=== PATIENT | female | born 1950 | race Caucasian/White ===

== ENCOUNTER → 2017-06-22 | Outpatient (CLI) | payer MEDICARE, OTHER ==
--- NOTE | 2017-06-25 10:28 | MM ---
Reason for exam: screening (asymptomatic). Last mammogram was performed 1 year and 2 months ago. History: Patient is postmenopausal. Physical Findings: A clinical breast exam by your physician is recommended on an annual basis and results should be correlated with mammographic findings. MG 3D Screening Mammo W/Cad Bilateral CC and MLO view(s) were taken. Prior study comparison: April 20, 2016, bilateral MG diagnostic mammo w CAD AMADEO. January 22, 2015, bilateral MG diagnostic mammo w CAD AMADEO. There are scattered fibroglandular densities. There are stable bilateral diffuse calcifications. No suspicious abnormality. No significant changes when compared with prior studies. ASSESSMENT: Benign, BI-RAD 2 RECOMMENDATION: Routine screening mammogram of both breasts in 1 year.
== END | disposition home or self-care (01) ==
LOC: RADMAMWWP 09:46
PROVIDERS: ATTEND Family Medicine
DX: Z12.31 Encounter for screening mammogram for malignant neoplasm of breast (principal)
CPT/HCPCS: 77063; G0202

== ENCOUNTER → 2017-11-06 | Outpatient (CLI) | payer MEDICARE, OTHER ==
--- NOTE | 2017-11-07 12:51 | ECHOF ---
Referral Reason:R60.9 Edema, unspecified, E11.9 Type 2 diabetes MEASUREMENTS -------- HEIGHT: 172.7 cm WEIGHT: 154.2 kg BP: IVSd: 1.3 cm (0.6 - 1.1) LVIDd: 4.1 cm (3.9 - 5.3) LVPWd: 1.3 cm (0.6 - 1.1) IVSs: 1.4 cm LVIDs: 3.4 cm LVPWs: 1.3 cm MV E Jae: 0.45 m/s MV DecT: 174 ms MV A Jae: 0.74 m/s MV E/A Ratio: 0.61 AV maxP.47 mmHg AV meanP.11 mmHg FINDINGS -------- Sinus rhythm. Morbid Obesity This was a techncally difficult study with suboptimal views, , Definity utilized for enhancement of images. There is mild concentric left ventricular hypertrophy. Overall left ventricular systolic function i s low-normal with, an EF between 50 - 55 %. The right ventricle is normal in size. The left atrial size is normal. The right atrial size is normal. The aortic valve was not well visualized. There is mild aortic stenosis present. Mild mitral annular calcification present. The tricuspid valve was not well visualized. No regurgitation noted Right ventricular systolic pr essure is normal at < 35 mmHg. There is no evidence of pulmonary hypertension. The pulmonic valve was not well visualized. CONCLUSIONS -------- 1. Morbid Obesity 2. This was a techncally difficult study with suboptimal views, , Definity utilized for enhancement o f images. 3. There is mild concentric left ventricular hypertrophy. 4. Overall left ventricular systolic function is low-normal with, an EF between 50 - 55 %. 5. The right ventricle is normal in size. 6. The left atrial size is normal. 7. The right atrial size is normal. 8. The aortic valve was not well visualized. 9. There is mild aortic stenosis present. 10. Mild mitral annular calcification present. 11. The tricuspid valve was not well visualized. 12. No regurgitation noted 13. Right ventricular systolic pressure is normal at < 35 mmHg. 14. The pulmonic valve was not well visualized. CARPENTER [employer]OTOTYPE: Claire Goss RDCS
== END | disposition home or self-care (01) ==
LOC: RADECHMAIN 11:18
PROVIDERS: ATTEND Family Medicine
DX: I35.0 Nonrheumatic aortic (valve) stenosis (principal); I51.7 Cardiomegaly; E11.9 Type 2 diabetes mellitus without complications; E66.01 Morbid (severe) obesity due to excess calories; I34.8 Other nonrheumatic mitral valve disorders
CPT/HCPCS: C8929; Q9950; 93306

== ENCOUNTER → 2018-06-25 | Outpatient (CLI) | payer MEDICARE, OTHER ==
--- NOTE | 2018-06-25 12:28 | US ---
EXAMINATION TYPE: US venous doppler duplex LE LT DATE OF EXAM: 06/25/2018 11:33 AM COMPARISON: NONE CLINICAL HISTORY: R22.42 Swelling Of Limb, M79.662 Pain. SIDE PERFORMED: left TECHNIQUE: The lower extremity deep venous system is examined utilizing real time linear array sonog aminah with graded compression, doppler sonography and color-flow sonography. VESSELS IMAGED: External Iliac Vein (EIV) Common Femoral Vein Deep Femoral Vein Greater Saphenous Vein * Femoral Vein Popliteal Vein Small Saphenous Vein * Grayscale, color doppler, spectral doppler imaging performed of the deep veins of the left lower extr emity. There is normal flow, compressibility, vascular waveforms. Left Leg: Negative for DVT Elongated popliteal cyst 4.3 x 0.5 x cm popliteal (bakers cyst) IMPRESSION: 1. No sonographic evidence of deep venous arthrosis within the left lower extremity. 2. Elongated popliteal cyst measuring up to 4.3 cm in length but only 0.5 cm in thickness.
== END | disposition home or self-care (01) ==
LOC: RADUSWWP 10:48
PROVIDERS: ATTEND Family Medicine
DX: M71.22 Synovial cyst of popliteal space [Baker], left knee (principal); R22.42 Localized swelling, mass and lump, left lower limb; Z88.2 Allergy status to sulfonamides

== ENCOUNTER → 2018-12-10 | Outpatient (CLI) | payer MEDICARE, OTHER ==
--- NOTE | 2018-12-10 10:00 | US ---
EXAMINATION TYPE: US thyroid st tissue head/neck DATE OF EXAM: 12/10/2018 COMPARISON: NONE CLINICAL HISTORY: E04.9 GOITER. Neck swelling, difficulty swallowing GLAND SIZE: Right Lobe: 4.3 x 2.0 x 1.9 cm Overall Parenchyma: heterogenous Left Lobe: 4.2 x 1.7 x 1.7 cm Overall Parenchyma: heterogeneous Isthmus Thickness: 0.5 cm NODULES RIGHT: # of nodules measured on right: 3 1. 1.0 X 0.7 x 1.1 cm hypoechoic mixed nodule at the mid pole with well-defined margins. This nodul e is wider than tall and shows intranodular vascularity. Prior size: no previous 2. 0.9 X 0.6 x 0.9 cm hypoechoic cystic nodule at the lower pole with well-defined margins. This nod ule is wider than tall and shows no intranodular vascularity. Prior size: no previous 3. 0.6 X 0.3 x 0.6 cm hypoechoic mixed nodule at the lower pole with well-defined margins. This nodu le is wider than tall and shows no intranodular vascularity. Prior size: no previous LEFT: # of nodules measured on left: 2 1. 1.6 X 1.4 x 1.2 cm hypoechoic mixed nodule at the mid pole with well-defined margins. This nodul e is taller than wide and shows intranodular vascularity. Prior size: no previous 2. 1.0 X 0.5 x 1.0 cm hypoechoic solid nodule at the upper pole with well-defined margins. This nodu le is wider than tall and shows intranodular vascularity. Prior size: no previous ISTHMUS: # of nodules measured in the isthmus: 0 Bilateral neck scanned, no evidence of lymphadenopathy. IMPRESSION: Multinodular thyroid with a dominant nodule on the left measuring 1.6 cm. No prior exams are availabl e for comparison. Heterogeneous thyroid tissue is suggestive of thyroiditis.
== END | disposition home or self-care (01) ==
LOC: RADUSWWP 08:40
PROVIDERS: ATTEND Family Medicine
DX: E04.2 Nontoxic multinodular goiter (principal); Z88.2 Allergy status to sulfonamides
CPT/HCPCS: 76536

== ENCOUNTER 2019-01-02 09:06 | Day surgery (SDC) | payer MEDICARE, OTHER ==
[2019-01-02 09:54] VITALS: RESP 16; TEMP 97.8
[2019-01-02 11:16] VITALS: BP 166/69; PULSE 84
--- NOTE | 2019-01-02 11:55 | US ---
EXAMINATION TYPE: US FNA thyroid first lesion, US FNA thyroid each add lesion, US FNA thyroid each ad d lesion DATE OF EXAM: 01/02/2019 COMPARISON: NONE HISTORY: Thyroid nodules. Maximal barrier technique was utilized. After informed consent, skin overlying the right lobe thyroi d nodule was localized with ultrasound and the overlying skin prepped and draped. Ultrasound was util ized using sterile technique. Lidocaine was used for local anesthesia. Four passes with a 25-gauge n eedle were made into the nodule and aspirated specimen was submitted to cytology. Using similar techn ique attention was directed to the upper pole left lobe thyroid nodule and similarly 4 passes were ma de with a 25-gauge needle and specimen submitted to cytology. Attention then directed to the lower po le nodule on the left at 4 passes with a 25-gauge needle were made into the nodule and aspirated spec imen submitted to cytology. Following the procedure hemostasis achieved. No immediate complication. The patient discharged in stable condition. IMPRESSION: STATUS POST ULTRASOUND GUIDED FINE NEEDLE ASPIRATION OF 3 DISCRETE THYROID NODULES, PATHO LOGY IS PENDING. THIS PROCEDURE WAS PERFORMED BY THE UNDERSIGNED.
== END 2019-01-02 11:30 | disposition home or self-care (01) ==
LOC: RADPROMAIN 09:06
PROVIDERS: ATTEND Family Medicine
DX: E04.1 Nontoxic single thyroid nodule (principal); Z88.2 Allergy status to sulfonamides
CPT/HCPCS: 10005; 10006; 88173; 88305

== ENCOUNTER 2019-05-12 20:31 | Emergency (ER) | payer MEDICARE ==
--- NOTE | 2019-05-12 21:05 | ED ---
Lower Extremity Injury HPI - General Chief Complaint: Extremity Injury, Lower Stated Complaint: R Leg Pain Time Seen by Provider: 05/12/19 21:05 Source: patient, family Mode of arrival: ambulatory Limitations: no limitations - History of Present Illness Initial Comments: Ama a 69-year-old female who presents the emergency department today for evaluation of right posterior knee pain. Patient reports she's previously experienced some minor pain and swelling of that knee and was diagnosed with a Rdz cyst approximately 2 years ago. She states that over the past 2 days she's had progressively worsening aching pain and swelling in her posterior knee which is worse than anything she ever experienced with a Rdz's cyst. Patient became concerned she may have a blood clot. Patient denies any falls or injury. She denies any anterior medial lateral knee pain. She describes it as soft tissue aching in the posterior knee. - Related Data Home Medications Medication Instructions Recorded Confirmed Albuterol Inhaler [Ventolin 1 - 2 puff INHALATION RT-QID PRN 08/14/14 05/12/19 Inhaler] Allopurinol [Zyloprim] 100 mg PO HS 07/04/17 05/12/19 Calcium/Magnesium/Zinc 1 tab PO HS 07/04/17 05/12/19 [Jbytlaw-Seokjaedm-Lyxc Tablet] Montelukast [Singulair] 10 mg PO HS 07/04/17 05/12/19 Multivitamins, Thera [Multivitamin 1 tab PO HS 07/04/17 05/12/19 (formulary)] metFORMIN HCL [Glucophage] 500 mg PO HS 07/04/17 05/12/19 Dulaglutide [Trulicity] 0.75 mg SQ SA 12/17/18 05/12/19 Fluticasone/Vilanterol [Breo 1 puff INHALATION RT-DAILY 12/17/18 05/12/19 Ellipta 200-25 Mcg INH] Atorvastatin Calcium [Lipitor] 20 mg PO HS 05/12/19 05/12/19 Cholecalciferol [Vitamin D3 (25 5,000 unit PO HS 05/12/19 05/12/19 Mcg = 1000 Iu)] Gabapentin [Neurontin] 300 mg PO TID 05/12/19 05/12/19 Lisinopril [Zestril] 5 mg PO HS 05/12/19 05/12/19 Allergies Allergy/AdvReac Type Severity Reaction Status Date / Time latex Allergy difficulty Verified 05/12/19 20:55 breathing,rash,hives Sulfa (Sulfonamide Allergy Anaphylaxis Verified 05/12/19 20:55 Antibiotics) adhesive tape AdvReac Rash/Hives Verified 05/12/19 20:55 Review of Systems ROS Statement: Those systems with pertinent positive or pertinent negative responses have been documented in the HPI. ROS Other: All systems not noted in ROS Statement are negative. Past Medical History Past Medical History: Asthma, Diabetes Mellitus, Hyperlipidemia, Hypertension Additional Past Medical History / Comment(s): thyroid nodules,enlarged goiter,gout, chronic back pain,steroid injection Oct History of Any Multi-Drug Resistant Organisms: None Reported Past Surgical History: Appendectomy, Section, Hysterectomy Additional Past Surgical History / Comment(s): neck surgery Past Anesthesia/Blood Transfusion Reactions: No Reported Reaction Additional Past Anesthesia/Blood Transfusion Reaction / Comment(s): stated "had a severe drop in heartrate during anesthesia for a colonoscopy",stated had other procedures after that colonoscopy without problems Past Psychological History: No Psychological Hx Reported Smoking Status: Former smoker Past Alcohol Use History: Rare Past Drug Use History: None Reported - Past Family History Mother Family Medical History: Cancer General Exam - General Exam Comments Initial Comments: Physical Exam GENERAL: Patient is well-developed and well-nourished. Patient is nontoxic and well-hydrated and is in no distress. HENT: Normocephalic, Atraumatic. EYES: PERRL, EOMI PULMONARY: Unlabored respirations CARDIOVASCULAR: RRR Warm and well perfused extremities ABDOMEN: Morbidly obese Nondistended SKIN: Skin is clear with no lesions or rashes and otherwise unremarkable. No skin discoloration or signs of cellulitis on the lower extremity : Deferred NEUROLOGIC: Patient is alert and oriented x3. Moving all extremities spontaneously MUSCULOSKELETAL: Normal extremities with adequate strength and full range of motion. No lower extremity swelling or edema. No calf tenderness. Palpable swelling in the popliteal fossa PSYCHIATRIC: Normal psychiatric evaluation. Limitations: no limitations Course Vital Signs 05/12/19 05/12/19 20:32 23:41 Temperature 97.9 F 98 F Pulse Rate 100 88 Respiratory 20 18 Rate Blood Pressure 143/63 122/71 O2 Sat by Pulse 96 Oximetry Medical Decision Making - Medical Decision Making The patient was seen and evaluated history is obtained from the patient History and physical exam are relatively unremarkable aside from morbid obesity. Patient has a painful popliteal fossa but no skin abnormalities no palpable cyst X-ray and ultrasound were ordered which revealed no acute pathology. Results were discussed with the patient she was treated with IM Toradol advised to continue supportive care and follow-up with orthopedics for outpatient managem ent. Disposition Clinical Impression: Right knee pain Disposition: HOME SELF-CARE Condition: Stable Instructions (If sedation given, give patient instructions): Knee Pain (ED) Is patient prescribed a controlled substance at d/c from ED?: No Referrals: David Ledesma MD [Primary Care Provider] - 1-2 days
--- NOTE | 2019-05-12 22:04 | XR ---
EXAMINATION TYPE: XR knee limited RT DATE OF EXAM: 05/12/2019 COMPARISON: NONE HISTORY: Knee pain TECHNIQUE: 2 views FINDINGS: There is some spurring on the patella. I see no fracture nor dislocation. There is no sign of knee joint effusion. IMPRESSION: Mild spurring. No fracture seen.
--- NOTE | 2019-05-12 23:00 | US ---
EXAM: US Duplex Right Lower Extremity Veins CLINICAL HISTORY: ITS.REASON US Reason: Posterior knee pain concern for flores cyst vs dvt TECHNIQUE: Real-time duplex ultrasound scan of the right lower extremity veins integrating B-mode two-dimensional vascular structure, Doppler spectral analysis, color flow Doppler imaging and compression. COMPARISON: No relevant prior studies available. FINDINGS: Deep veins: Unremarkable. Normal compression is demonstrated from the common femoral to the popliteal vein. There is normal response to augmentation. Superficial veins: Unremarkable as visualized. Soft tissues: No acute findings. IMPRESSION: No evidence of deep venous thrombosis in the right lower extremity. No popliteal cyst.
[2019-05-12] MEDS ORDERED: KETOROLAC 30 MG/ML 1 ML VIAL IM STA (23:17)
[2019-05-12 23:42] VITALS: BP 122/71; PULSE 88; RESP 18; TEMP 98
== END 2019-05-12 23:44 | disposition home or self-care (01) ==
LOC: EC 20:31
DX: M25.561 Pain in right knee (principal); M79.89 Other specified soft tissue disorders; E66.01 Morbid (severe) obesity due to excess calories; J45.909 Unspecified asthma, uncomplicated; E11.9 Type 2 diabetes mellitus without complications; E78.5 Hyperlipidemia, unspecified; I10 Essential (primary) hypertension; M10.9 Gout, unspecified; G89.29 Other chronic pain; M54.9 Dorsalgia, unspecified; Z79.51 Long term (current) use of inhaled steroids; Z79.84 Long term (current) use of oral hypoglycemic drugs; Z79.899 Other long term (current) drug therapy; Z68.41 Body mass index [BMI] 40.0-44.9, adult; Z87.891 Personal history of nicotine dependence; Z91.040 Latex allergy status; Z88.2 Allergy status to sulfonamides; Z91.048 Other nonmedicinal substance allergy status; Z87.39 Personal history of other diseases of the musculoskeletal system and connective tissue
CPT/HCPCS: 73560; 93971; 96372; 99284; J1885